=== PATIENT | male | born 1970 | race Caucasian/White ===

== ENCOUNTER 2020-11-04 18:02 | Emergency (ER) | payer BC, MEDICAID ==
[~2020-11-04] VITALS: Ht 167.6 cm; Wt 80.7 kg
--- NOTE | 2020-11-04 19:21 | NUR ---
BUDDER: PT. TO ROOM FROM LOBBY AT THIS TIME.
[2020-11-04] MEDS ORDERED: DIAZEPAM 5 MG TABLET ONE (19:48)
[2020-11-04] MEDS ORDERED: KETOROLAC 30 MG/1 ML ONE (19:49)
[2020-11-04] MEDS ORDERED: KETOROLAC 30 MG/1 ML IM ONE (20:00)
[2020-11-04] MEDS ORDERED: DIAZEPAM 5 MG TABLET PO/NG ONE (20:00)
[2020-11-04 20:58] VITALS: BP 134/89
== END 2020-11-04 21:08 | disposition home or self-care (01) ==
LOC: ED 21:00
DX: S39.012A Strain of muscle, fascia and tendon of lower back, initial encounter (principal); S80.01XA Contusion of right knee, initial encounter; V03.99XA Pedestrian with other conveyance injured in collision with car, pick-up truck or van, unspecified whether traffic or nontraffic accident, initial encounter; Y93.89 Activity, other specified; Y92.218 Other school as the place of occurrence of the external cause; Y99.8 Other external cause status
CPT/HCPCS: 72110; 73564; 96372; 99284; J1885